=== PATIENT | male | born 1955 | race Caucasian/White ===

== ENCOUNTER → 2019-04-29 09:10 | Outpatient (BNVA) | payer MEDICARE, BC, SELFPAY | PROVIDERS: Family Provider Family Medicine; PCP Nurse Practitioner; Visit Provider Family Medicine | DX: I48.91 Unspecified atrial fibrillation (principal) | CPT/HCPCS: 85610 ==

== ENCOUNTER → 2019-05-27 11:37 | Outpatient (BNVA) | payer MEDICARE, BC, SELFPAY | PROVIDERS: Family Provider Family Medicine; PCP Nurse Practitioner; Visit Provider Family Medicine | DX: D69.9 Hemorrhagic condition, unspecified (principal) | CPT/HCPCS: 85610 ==

== ENCOUNTER 2019-07-11 20:18 | Emergency (ER) | payer MEDICARE, BC, SELFPAY ==
[2019-07-11 20:23] VITALS: BP 172/107; PULSE 75; RESP 20; TEMP 37.1; O2SAT 100; BMI 33.8
--- NOTE | 2019-07-11 20:45 | ED_ITS ---
HPI - General Adult General: Chief complaint: General Medical Stated complaint: nose bleed Time Seen by Provider: 07/11/19 20:26 History of Present Illness: HPI narrative: Patient arrives with history of nosebleed since 7:00 this evening. Patient is on Coumadin. Last INR was normal. Patient said he had this problem 70 years ago. Denies any upper respiratory infection or problems that led to this today. MD complaint: Epistaxis Onset (ago): hour(s) Associated symptoms: Deny chest pain, dyspnea, headache(s), nausea, rash or vomiting Review of Systems Const: Denies: fever, chills or body aches Eyes: Denies: change in vision or blurry vision ENMT: Reports: nose bleeds; Denies: throat pain or nasal congestion Card: Denies: chest pain or shortness of breath on exertion Resp: Denies: shortness of breath, productive cough or non-productive cough GI: Denies: abdominal pain, nausea or vomiting : Denies: difficulty urinating Musc: Denies: extremity pain Skin/Breast: Denies: rash Neuro: Denies: headache Psych: Denies: anxiety or depression Alexi/Lymph: Denies: easy bruising PFSH ED PFSH: Social History Smoking and tobacco status: never smoked Physical Exam Const: COMMON NORMALS: no apparent distress, average body habitus and oriented x3 HENMT: COMMON NORMALS: normocephalic HEAD & SCALP: normal to inspection and normocephalic FACE & SINUS: normal facial exam NOSE: epistaxis (González's note did place a nasal tampon with 10 mL of air) on the right and on the left Eye: COMMON NORMALS: conjunctivae normal GENERAL EYE: normal appearance of both eyes CONJUNCTIVA: Yes conjunctivae normal Neck/C-Spine: COMMON NORMALS: no JVD Chest: COMMONS NORMALS: inspection of chest normal Resp: COMMON NORMALS: normal respiratory effort and clear to auscultation bilaterally AUSCULTATION: clear to auscultation bilaterally Cardio: COMMON NORMALS: no JVD, regular rate and regular rhythm RATE: regular rate RHYTHM: regular rhythm GI: COMMON NORMALS: normal to inspection, nondistended, normoactive bowel sounds Extremity: COMMON NORMALS: normal to inspection and full ROM Neuro: COMMON NORMALS: oriented x3 Procedures Epistaxis Control Time Out Performed: No Nostril: left Nose Prepped With: phenylephrine Direct Inspection: unable to visualize Cautery Used: none Device Inserted: hemostatic balloon Device Size: 12 Patient Tolerated Procedure: well Complications: pain Course Vital Signs: Vital signs: Vital Signs Temperature 98.7 F 07/11/19 20:23 Pulse Rate 78 07/11/19 21:30 Respiratory Rate 18 07/11/19 21:30 Blood Pressure 188/121 07/11/19 21:30 Pulse Oximetry 98 07/11/19 21:30 MDM - General Adult MDM Narrative: Medical decision making narrative: Bleeding is stopped with treatment. Blood pressures come down. Discussed case with Dr. Mcbride. Lab Data: Labs: Lab Results 07/11/19 07/11/19 Range/Units 20:48 20:48 WBC 9.1 (4.0-10.0) 10^3/ uL RBC 5.66 H (4.1-5.3) 10^6/u L Hgb 13.5 (11.7-16.6) g/dL Hct 44.8 (42.0-52.0) % MCV 79.2 L (80-94) fL MCH 23.9 L (28.0-34.0) pg MCHC 30.1 (30.0-36.0) g/dL RDW 17.5 H (12.1-15.1) % Plt Count 189 (130-400) 10^3/c mm MPV 11.8 H (7.4-10.4) fL Neut % (Auto) 57.6 % Lymph % (Auto) 28.9 % Eagle % (Auto) 10.1 % Eos % (Auto) 2.4 % Baso % (Auto) 0.7 % Neut # (Auto) 5.2 (1.8-7.7) 10^3/u L Lymph # (Auto) 2.6 (0.8-4.8) 10^3/u L Eagle # (Auto) 0.9 (0.2-0.9) 10^3/u L Eos # (Auto) 0.2 (0.0-0.8) 10^3/u L Baso # (Auto) 0.1 (0.0-0.1) 10^3/u L Nucleated RBC % (a uto) 0 % Nucleated RBCs # 0.0 /100WBC PT 20.90 H (10.5-13.3) SECO NDS INR 1.73 H (0.8-1.2) Coding Level of Care Code ED Washing And Screening Plant Supervisor for Chg Fwd Exam Comprehensive
[2019-07-11] MEDS: HYDROcodone-acetaminophen 5-325 mg Tablet 1 TAB PO (20:57)
[2019-07-11] MEDS: LORazepam 1 mg Tablet 0.5 MG PO (20:57)
[2019-07-11 21:01] VITALS: BP 172/112; PULSE 72; RESP 18; O2SAT 99
[2019-07-11 21:03] VITALS: BP 172/112; PULSE 68; RESP 18; O2SAT 99
[2019-07-11 21:05] LABS: Basophils # 0.1 10^3/uL (0.0-0.1); Basophils % 0.7 %; Eosinophils # 0.2 10^3/uL (0.0-0.8); Eosinophils % 2.4 %; Hematocrit 44.8 % (42.0-52.0); Hemoglobin 13.5 g/dL (11.7-16.6); Lymphocytes # 2.6 10^3/uL (0.8-4.8); Lymphocytes % 28.9 %; Mean Corpuscular HGB Conc 30.1 g/dL (30.0-36.0); Mean Corpuscular Hemoglobin 23.9 pg (28.0-34.0); Mean Corpuscular Volume 79.2 fL (80-94); Mean Platelet Volume 11.8 fL (7.4-10.4); Monocytes # 0.9 10^3/uL (0.2-0.9); Monocytes % 10.1 %; Neutrophils # 5.2 10^3/uL (1.8-7.7); Neutrophils % 57.6 %; Nucleated Red Blood Cells % 0 %; Platelet Count 189 10^3/cmm (130-400); Red Blood Count 5.66 10^6/uL (4.1-5.3); Red Cell Distribution Width 17.5 % (12.1-15.1); White Blood Count 9.1 10^3/uL (4.0-10.0)
[2019-07-11 21:18] LABS: INR 1.73 (0.8-1.2)
[2019-07-11 21:30] VITALS: BP 188/121; PULSE 78; RESP 18; O2SAT 98
[2019-07-11] MEDS: cloNIDine 0.1 mg Tablet 0.2 MG PO (21:47)
[2019-07-11 22:38] VITALS: BP 176/107; PULSE 88; RESP 16; O2SAT 98
== END 2019-07-11 22:50 | disposition home or self-care (01) ==
PROVIDERS: Emergency Provider Nurse Practitioner Family; Family Provider Family Medicine; PCP Nurse Practitioner
DX: R04.0 Epistaxis (principal); Z79.01 Long term (current) use of anticoagulants
CPT/HCPCS: 12345; 30901; 85025; 85610; 99281; 99283

== ENCOUNTER 2019-07-12 08:38 | Emergency (ER) | payer MEDICARE, BC, SELFPAY ==
[2019-07-12 08:46] VITALS: BP 153/95; RESP 16; BMI 33.8
[2019-07-12 08:50] VITALS: BP 153/95; PULSE 71; RESP 16; TEMP 36.4; O2SAT 99
[2019-07-12] MEDS: oxymetazoline 0.05% Nasal Spray 15 mL 2 SPRAY NOSTRIL-B (09:00)
--- NOTE | 2019-07-12 09:16 | ED_ITS ---
HPI - Epistaxis General: Chief complaint: General Medical Stated complaint: nose bleed with rocket in Time Seen by Provider: 07/12/19 08:47 Source: patient Mode of arrival: ambulatory Limitations: no limitations History of Present Illness: HPI Narrative: Patient is a very nice 64-year-old gentleman who presents to ED today with complaints of continued nosebleed following his visit here yesterday and left nare packing. He states he has noticed bleeding coming from the right nare. Patient was seen here yesterday and had labs performed due to his warfarin use. INR at that time was 1.7. He stated he was told not to take his warfarin today. Patient reports one previous nosebleed but otherwise no history of these. No injury/trauma. MD complaint: epistaxis Location: right nostril Onset (ago): day(s) Duration: constant Context: warfarin use Associated symptoms: Deny fever(s), headache(s), syncope or vomiting Review of Systems Const: Denies: fever, chills, body aches, fatigue or malaise Eyes: Denies: change in vision, blurry vision, photophobia, eye discomfort, floaters or seeing flashes ENMT: Denies: throat pain, enlarged tonsils, painful swallowing, mouth pain, swelling of lips/tongue, oral sores/lesions, bleeding gums, ear pain, ear discharge, tinnitus, disequilibrium, nasal discharge or nasal congestion Card: Denies: chest pain, palpitations, irregular heart rhythm, edema, lightheadedness, syncope or pre-syncope Resp: Denies: shortness of breath, productive cough or chest congestion GI: Denies: abdominal pain, nausea or vomiting Musc: Denies: neck pain or back pain Skin/Breast: Denies: rash Neuro: Denies: headache, numbness in extremities, weakness in extremities or changes in sensation PFSH ED PFSH: Social History Smoking and tobacco status: never smoked Physical Exam Const: COMMON NORMALS: no apparent distress, oriented x3, no limitations and alert HENMT: COMMON NORMALS: normocephalic, head/scalp atraumatic, hearing grossly normal bilaterally, external ears normal, EAC's normal, moist oral mucous membranes and oropharynx normal HEAD & SCALP: normocephalic and atraumatic FACE & SINUS: normal facial exam and sinuses nontender NOSE: other (packing present to L nare; see below for further details) EXTERNAL EAR: Yes external ears normal EXTERNAL AUDITORY CANAL: EAC's normal MOUTH: oral and palatal mucosa normal, lip normal and tongue normal THROAT: posterior oropharynx normal, tonsils normal and uvula midline OTHER: pt had clot to R nare-this was blown out and overall R nare looks clean w/o bleeding; there is no bleeding at this time; packing was removed from L nare and patient immediately began bleeding again for approximately 30 seconds; bleeding either stopped on its own or from the administration of Afrin; no further bleeding at this time; L nare is very friable appearing although no direct visualization of bleeding site was identified; most likely this was a posterior bleed Neuro: COMMON NORMALS: oriented x3 SENSORIUM/ORIENTATION: Yes alert Course Vital Signs: Vital signs: Vital Signs Temperature 97.6 F 07/12/19 08:50 Pulse Rate 98 07/12/19 09:46 Respiratory Rate 16 07/12/19 09:46 Blood Pressure 147/95 07/12/19 09:46 Pulse Oximetry 100 07/12/19 09:46 MDM - Epistaxis MDM Narrative: Medical decision making narrative: at this time pt has intermittent scant bleeding from L nare-I feel if I were to send him home w/o intervention then he would most likely return later today with recurrent bleeding; decision was made to repack L nare; it appeared anterior packing ball oon was in placed; I placed a posterior balloon; pt was monitored for 30 mins w/o bleeding; will get him set up with ENT and if they cannot see him then his can remove the balloon or he can return here for removal; pt can continue his warfarin as normal tomorrow Discharge Plan Discharge Patient Disposition: Home, Self-Care Clinical Impression: Epistaxis Condition: Stable Prescriptions: No Action hydrocodone-acetaminophen 5-325 mg tablet 1 tab PO Q6H PRN (Reason: pain) Qty: 7 RF: 0 lorazepam [Ativan] 0.5 mg tablet 0.25 mg PO Q8H PRN (Reason: sedation) Qty: 7 RF: 0 atorvastatin 20 mg Tablet 20 mg PO DAILY RF: 0 metoprolol tartrate 100 mg Tablet 100 mg PO BID RF: 0 Flomax 0.4 mg Capsule 0.4 mg PO DAILY RF: 0 warfarin 5 mg Tablet See Rx Instructions .ROUTE .COMPLEX RF: 0 sertraline 25 mg Tablet 25 mg PO DAILY RF: 0 omeprazole 20 mg Capsule,Delayed Release(Dr/Ec) 20 mg PO DAILY RF: 0 aspirin 81 mg Tablet,Chewable 81 mg PO DAILY RF: 0 Lasix 20 mg Tablet 20 mg PO BID RF: 0 Discharge Orders: Discharge Order (Routine); Ordered 07/12/19 Ordered By: Sandra Cruz Referrals: Verónica Davis MD [Family Provider] - Kriss Paz FNP-C [Primary Care Provider] - Discharge Diet: Usual diet Discharge Activity: Resume usual activity Patient Instructions: Epistaxis (ED), Epistaxis - Adult Activity Restrictions/Additional Instructions: As discussed we will try to get you set up with ENT early next week however if you are not able to obtain an appointment by Sunday/Sunday you need to have your remove the nasal balloon if she feels comfortable or return to the emergency department where we can remove it. Continue the antibiotics that you stated you are taking. Return to the emergency department at anytime for worsening or uncontrollable bleeding. Discharge Date/Time: 07/12/19 09:46 Coding Level of Care Code ED Welder Apprentice Arc for El Fwd Exam Expanded Problem Focused
[2019-07-12 09:46] VITALS: BP 147/95; PULSE 98; RESP 16; O2SAT 100
--- NOTE | 2019-07-15 11:07 | DCPLANNER ---
security sales manager had message to schedule a follow up appointment for patient with ENT. Dr. Verduzco's office is closed at this time, piano case maker called patient to ask patient if he would like for piano case maker to schedule a follow up appointment for patient with Dr. Salomon. security sales manager spoke with patients , stated that patient would prefer not see Dr. Salomon. security sales manager explained that Dr. Verduzco was out of the office this week. Patients stated that patient was seen by his primary care provider, and that the primary care will take care of referral to ENT for patient.
== END 2019-07-12 09:46 | disposition home or self-care (01) ==
LOC: ER 09:37
PROVIDERS: Emergency Provider Physician Assistant; Family Provider Family Medicine; PCP Nurse Practitioner
DX: R04.0 Epistaxis (principal); Z79.82 Long term (current) use of aspirin; Z79.01 Long term (current) use of anticoagulants
CPT/HCPCS: 12345; 30905; 99282

== ENCOUNTER 2019-07-14 11:58 | Emergency (ER) | payer MEDICARE, BC, SELFPAY ==
[2019-07-14 12:09] VITALS: BP 141/103; PULSE 80; RESP 16; TEMP 36.6; O2SAT 98; BMI 33.7
--- NOTE | 2019-07-14 12:48 | ED_ITS ---
HPI - Epistaxis General: Chief complaint: Epistaxis Stated complaint: nose bleed Time Seen by Provider: 07/14/19 12:12 Source: patient Mode of arrival: ambulatory Limitations: no limitations History of Present Illness: HPI Narrative: Patient is a 64-year-old male who presents to ED today yet again for epistaxis evaluation. Patient was seen by myself 2 days ago and had a left nare posterior pack placed. Patient states packing was doing well. He went to his PCP today who decided to remove the packing and after removal stated the nare began bleeding again so this was sent to the emergency department. Upon arrival patient has very scant amount of watery blood-tinged discharge from the nare. He is not noticing any blood taste in his mouth. MD complaint: epistaxis Location: left nostril Duration: now resolved Context: history of previous and warfarin use Associated symptoms: Reports no associated symptoms; Deny fever(s) or headache(s) Treatment prior to arrival: nasal clamp Review of Systems Const: Denies: fever, chills, body aches, fatigue or malaise Eyes: Denies: change in vision, blurry vision, photophobia, floaters or seeing flashes ENMT: Denies: painful swallowing, hoarseness, mouth pain, bleeding gums or dental pain Card: Denies: lightheadedness Neuro: Denies: headache or dizziness PFS ED PFSH: Social History Smoking and tobacco status: never smoked Physical Exam Const: COMMON NORMALS: no apparent distress, oriented x3, no limitations and alert HENMT: COMMON NORMALS: normocephalic, head/scalp atraumatic, moist oral mucous membranes and oropharynx normal HEAD & SCALP: normocephalic and atraumatic THROAT: posterior oropharynx normal, tonsils normal and uvula midline OTHER: L nare overall improved appearance of tissue; again scant blood tinged clear drainage noted (not even enough to soak a tissue throughout the 2 hours he was in the ED) Neck/C-Spine: COMMON NORMALS: full ROM, no lymphadenopathy and no meningeal signs Neuro: COMMON NORMALS: oriented x3 SENSORIUM/ORIENTATION: Yes alert MENINGEAL SIGNS: Yes no meningeal signs Course Vital Signs: Vital signs: Vital Signs Temperature 97.8 F 07/14/19 12:09 Pulse Rate 81 07/14/19 13:29 Respiratory Rate 16 07/14/19 13:29 Blood Pressure 125/72 07/14/19 13:29 Pulse Oximetry 100 07/14/19 13:29 MDM - Epistaxis MDM Narrative: Medical decision making narrative: Patient was watched in the ED for approximately 2 hours and never had anything more than a scant amount of blood-tinged clear drainage. Drainage was not enough to even soak a tissue throughout his stay. Spoke to him about repacking his nare however patient does not want this if at all possible. Again we will try to get him set up with ENT. In the meantime we will try to treat with a nasal clamp and Afrin. Patient was instructed on return to ED precautions including worsening bleeding not alleviated with the above methods. Discharge Plan Discharge Patient Disposition: Home, Self-Care Clinical Impression: Epistaxis Condition: Stable Prescriptions: No Action hydrocodone-acetaminophen 5-325 mg tablet 1 tab PO Q6H PRN (Reason: pain) Qty: 7 RF: 0 lorazepam [Ativan] 0.5 mg tablet 0.25 mg PO Q8H PRN (Reason: sedation) Qty: 7 RF: 0 Vitamin D3 1 tab PO DAILY RF: 0 atorvastatin 20 mg Tablet 20 mg PO DAILY RF: 0 metoprolol tartrate 100 mg Tablet 100 mg PO BID RF: 0 tamsulosin [Flomax] 0.4 mg Capsule 0.4 mg PO DAILY RF: 0 warfarin 5 mg Tablet See Rx Instructions .ROUTE .COMPLEX RF: 0 sertraline 25 mg Tablet 25 mg PO DAILY RF: 0 omeprazole 20 mg Capsule,Delayed Release(Dr/Ec) 20 mg PO DAILY RF: 0 aspirin 81 mg Tablet,Chewable 81 mg PO DAILY RF: 0 furosemide [Lasix] 20 mg Tablet 20 mg PO BID RF: 0 Discharge Orders: Discharge Order (Routine); Ordered 07/14/19 Ordered By: Sandra Cruz Referrals: Verónica Davis MD [Family Provider] - Kriss Paz FNP-C [Primary Care Provider] - Patient Instructions: Epistaxis (ED) Activity Restrictions/Additional Instructions: As discussed I have decided not to repack your nare at this time as bleeding here has been scant. I want you to continue the Afrin as needed every 8 hours as well as applying the nasal clamp as often as necessary for bleeding. If bleeding increases from what it is currently and is not controlled with compression/Afrin please return to the ED for further evaluation. Again we are trying to get case management to set you up with ENT. Discharge Date/Time: 07/14/19 14:01 Coding Level of Care Code ED Program Management Intern for Sabihag Fwd Exam Expanded Problem Focused
[2019-07-14] MEDS: oxymetazoline 0.05% Nasal Spray 15 mL 2 SPRAY NOSTRIL-B (13:28)
[2019-07-14 13:29] VITALS: BP 125/72; PULSE 81; RESP 16; O2SAT 100
--- NOTE | 2019-07-16 12:23 | DCPLANNER ---
manager math had message to schedule a follow up appointment for patient with ENT. manager math spoke with patients , and was told that patient did not want to see Dr. Salomon. Patients stated that patient has seen his primary care, and that patients primary care is referring patient to [place].
== END 2019-07-14 14:01 | disposition home or self-care (01) ==
PROVIDERS: Emergency Provider Physician Assistant; Family Provider Family Medicine; PCP Nurse Practitioner
DX: R04.0 Epistaxis (principal); Z79.82 Long term (current) use of aspirin
CPT/HCPCS: 12345; 99281; 99282

== ENCOUNTER → 2019-07-30 08:50 | Outpatient (BNVA) | payer MEDICARE, BC, SELFPAY | PROVIDERS: Family Provider Family Medicine; PCP Family Medicine; Visit Provider Nurse Practitioner Family | DX: I10 Essential (primary) hypertension (principal); R06.00 Dyspnea, unspecified; Z79.01 Long term (current) use of anticoagulants | CPT/HCPCS: 80048; 83880; 85610 ==

== ENCOUNTER 2019-07-31 21:28 | Emergency (ER) | payer MEDICARE, BC, SELFPAY ==
[2019-07-31 21:33] VITALS: BP 185/102; PULSE 93; RESP 14; TEMP 36.5; O2SAT 100; BMI 33.7
[2019-07-31] MEDS: oxymetazoline 0.05% Nasal Spray 15 mL 4 SPRAY NOSTRIL-B (22:00)
--- NOTE | 2019-07-31 22:46 | ED_ITS ---
HPI - Epistaxis General: Chief complaint: Epistaxis Stated complaint: NOSEBLEED Time Seen by Provider: 07/31/19 22:14 Source: patient Mode of arrival: ambulatory Limitations: no limitations History of Present Illness: HPI Narrative: Patient is a 64-year-old male who presents to ED today with complaints of a nosebleed. Patient was seen here approximately 17 days ago by myself for the nosebleed. He had had 2 previous visits before that for same complaint. Patient states after the last visit with myself he was doing okay until this morning when nare began bleeding again. He has had evaluation from ENT and told he has a polyp that needs surgically removed. He states ENT should be contacting him tomorrow to set up a surgery time for next week. MD complaint: epistaxis Location: left nostril Onset (ago): hour(s) Duration: constant Context: history of previous and warfarin use Associated symptoms: Reports no associated symptoms; Deny fever(s), headache(s), sinus pain or vomiting Treatment prior to arrival: nose pinching, head tilted back and nasal clamp Review of Systems Const: Denies: fever or chills Eyes: Denies: change in vision, blurry vision, photophobia, floaters or seeing flashes ENMT: Reports: nose bleeds; Denies: throat pain, enlarged tonsils, painful swallowing, dental pain, tinnitus or facial/sinus pain Card: Denies: chest pain Resp: Denies: shortness of breath GI: Denies: nausea or vomiting Neuro: Denies: headache PFSH ED PFSH: Social History Smoking and tobacco status: never smoked Physical Exam Const: COMMON NORMALS: no apparent distress, average body habitus, oriented x3, no limitations, healthy appearing, alert and well nourished HENMT: COMMON NORMALS: normocephalic, head/scalp atraumatic, hearing grossly normal bilaterally, external ears normal, EAC's normal, TM's normal bilaterally and oropharynx normal HEAD & SCALP: normocephalic and atraumatic FACE & SINUS: normal facial exam and sinuses nontender NOSE: epistaxis on the left active bleeding and source not visualized EXTERNAL EAR: Yes external ears normal EXTERNAL AUDITORY CANAL: EAC's normal TYMPANIC MEMBRANE: TM's normal bilaterally Eye: COMMON NORMALS: PERRL, EOMs intact bilaterally and conjunctivae normal CONJUNCTIVA: Yes conjunctivae normal PUPIL: Yes PERRL Resp: COMMON NORMALS: normal respiratory effort Cardio: COMMON NORMALS: regular rate and regular rhythm RATE: regular rate RHYTHM: regular rhythm Neuro: COMMON NORMALS: oriented x3 SENSORIUM/ORIENTATION: Yes alert Procedures Epistaxis Control Time Out Performed: No Nostril: left Nose Prepped With: oxymetazoline Direct Inspection: unable to visualize Cautery Used: none Device Inserted: hemostatic balloon (posterior balloon) Patient Tolerated Procedure: well Course Reevaluation(s): Reevaluation #1: pts nosebleed doing well with his balloon packing; RN/lab still has not collected pts labs so awaiting those Vital Signs: Vital signs: Vital Signs Temperature 97.7 F 07/31/19 21:33 Pulse Rate 93 07/31/19 21:33 Respiratory Rate 20 H 07/31/19 23:18 Blood Pressure 156/102 07/31/19 23:18 Pulse Oximetry 100 07/31/19 21:33 MDM - Epistaxis MDM Narrative: Medical decision making narrative: pts bleeding has stopped with balloon packing; CBC/INR labs are okay (INR 2.08); recommend he contact ENT tomorrow if he has not heard from them; recommend he ask them if they want him to leave packing in until his surgery early next week; if they want it removed earlier then he can return here over the weekend Lab Data: Labs: Lab Results 07/31/19 07/31/19 Range/Units 23:13 23:13 WBC 10.4 H (4.0-10.0) 10^3/ uL RBC 4.42 (4.1-5.3) 10^6/u L Hgb 10.2 L (11.7-16.6) g/dL Hct 34.3 L (42.0-52.0) % MCV 77.6 L (80-94) fL MCH 23.1 L (28.0-34.0) pg MCHC 29.7 L (30.0-36.0) g/dL RDW 17.1 H (12.1-15.1) % Plt Count 273 (130-400) 10^3/c mm MPV 10.8 H (7.4-10.4) fL Neut % (Auto) 65.8 % Lymph % (Auto) 21.7 % Schleicher % (Auto) 10.2 % Eos % (Auto) 1.4 % Baso % (Auto) 0.6 % Neut # (Auto) 6.8 (1.8-7.7) 10^3/u L Lymph # (Auto) 2.3 (0.8-4.8) 10^3/u L Schleicher # (Auto) 1.1 H (0.2-0.9) 10^3/u L Eos # (Auto) 0.2 (0.0-0.8) 10^3/u L Baso # (Auto) 0.1 (0.0-0.1) 10^3/u L Nucleated RBC % (a uto) 0 % Nucleated RBCs # 0.0 /100WBC PT 24.20 H (10.5-13.3) SECO NDS INR 2.08 H (0.8-1.2) Discharge Plan Discharge Patient Disposition: Home, Self-Care Clinical Impression: Epistaxis Condition: Stable Prescriptions: No Action hydrocodone-acetaminophen 5-325 mg tablet 1 tab PO Q6H PRN (Reason: pain) Qty: 7 RF: 0 lorazepam [Ativan] 0.5 mg tablet 0.25 mg PO Q8H PRN (Reason: sedation) Qty: 7 RF: 0 Vitamin D3 1 tab PO DAILY RF: 0 atorvastatin 20 mg Tablet 20 mg PO DAILY RF: 0 metoprolol tartrate 100 mg Tablet 100 mg PO BID RF: 0 tamsulosin [Flomax] 0.4 mg Capsule 0.4 mg PO DAILY RF: 0 warfarin 5 mg Tablet See Rx Instructions .ROUTE .COMPLEX RF: 0 sertraline 25 mg Tablet 25 mg PO DAILY RF: 0 omeprazole 20 mg Capsule,Delayed Release(Dr/Ec) 20 mg PO DAILY RF: 0 aspirin 81 mg Tablet,Chewable 81 mg PO DAILY RF: 0 furosemide [Lasix] 20 mg Tablet 20 mg PO BID RF: 0 Discharge Orders: Discharge Order (Routine); Ordered 07/31/19 Ordered By: Sandra Cruz Referrals: Verónica Davis MD [Primary Care Provider] - Discharge Diet: Usual diet Discharge Activity: Resume usual activity Patient Instructions: Epistaxis (ED) Activity Restrictions/Additional Instructions: As discussed if you do not hear from ENT tomorrow please contact them so you know the plan for your upcoming surgery. Ask them if they would like you to keep your packing in place until the surgery. If they would like it removed earlier than you may return to the emergency department or your primary care provider for this. Coding Level of Care Code ED General Farmer for El Fwd Exam Detailed
[2019-07-31 23:18] VITALS: BP 156/102; RESP 20
[2019-07-31 23:25] LABS: Basophils # 0.1 10^3/uL (0.0-0.1); Basophils % 0.6 %; Eosinophils # 0.2 10^3/uL (0.0-0.8); Eosinophils % 1.4 %; Hematocrit 34.3 % (42.0-52.0); Hemoglobin 10.2 g/dL (11.7-16.6); Lymphocytes # 2.3 10^3/uL (0.8-4.8); Lymphocytes % 21.7 %; Mean Corpuscular HGB Conc 29.7 g/dL (30.0-36.0); Mean Corpuscular Hemoglobin 23.1 pg (28.0-34.0); Mean Corpuscular Volume 77.6 fL (80-94); Mean Platelet Volume 10.8 fL (7.4-10.4); Monocytes # 1.1 10^3/uL (0.2-0.9); Monocytes % 10.2 %; Neutrophils # 6.8 10^3/uL (1.8-7.7); Neutrophils % 65.8 %; Nucleated Red Blood Cells % 0 %; Platelet Count 273 10^3/cmm (130-400); Red Blood Count 4.42 10^6/uL (4.1-5.3); Red Cell Distribution Width 17.1 % (12.1-15.1); White Blood Count 10.4 10^3/uL (4.0-10.0)
[2019-07-31 23:30] LABS: INR 2.08 (0.8-1.2)
[2019-08-01 00:37] VITALS: BP 158/97; PULSE 82; RESP 20; O2SAT 97
== END 2019-08-01 00:40 | disposition home or self-care (01) ==
PROVIDERS: Emergency Medicine; Emergency Provider Physician Assistant; Family Provider Family Medicine; PCP Family Medicine
DX: R04.0 Epistaxis (principal); Z79.01 Long term (current) use of anticoagulants; Z79.82 Long term (current) use of aspirin
CPT/HCPCS: 12345; 30905; 85025; 85610; 99281; 99282

== ENCOUNTER → 2019-08-20 09:01 | Outpatient (BNVA) | payer MEDICARE, BC, SELFPAY | PROVIDERS: Family Provider Family Medicine; PCP Family Medicine; Visit Provider Family Medicine | DX: Z79.01 Long term (current) use of anticoagulants (principal) | CPT/HCPCS: 85610 ==

== ENCOUNTER → 2019-09-11 09:24 | Outpatient (BNVA) | payer MEDICARE, BC, SELFPAY | PROVIDERS: Family Provider Family Medicine; PCP Family Medicine; Visit Provider Family Medicine | DX: Z79.01 Long term (current) use of anticoagulants (principal) | CPT/HCPCS: 85610 ==

== ENCOUNTER → 2019-09-25 09:25 | Outpatient (BNVA) | payer MEDICARE, BC, SELFPAY | PROVIDERS: Family Provider Family Medicine; PCP Family Medicine; Visit Provider Family Medicine | DX: D69.9 Hemorrhagic condition, unspecified (principal); Z79.01 Long term (current) use of anticoagulants | CPT/HCPCS: 85610 ==

== ENCOUNTER 2020-02-17 09:37 | Outpatient (CLI) | payer MEDICARE, BC, SELFPAY ==
--- NOTE | 2020-02-17 09:47 | XRR_ITS ---
PROCEDURE INFORMATION: Exam: XR Left Elbow Exam date and time: 02/17/2020 9:51 AM Age: 64 years old Clinical indication: Pain and injury or trauma and condition or disease; Fall; Bursitis; Blunt trauma (contusions or hematomas); Injury date: 1 week ago; Injury details: PT fell and hit elbow on bathroom vanity; Patient HX: Left elbow pain, medial side ulnar; Additional info: Olecranon bursitis TECHNIQUE: Imaging protocol: XR Left elbow. Views: 1 or 2 views. COMPARISON: No relevant prior studies available. FINDINGS: Bones/joints: No fracture dislocation or other acute bone or joint abnormalities are seen. Chronic degenerative changes are present with osteophyte formation and sclerosis. Soft tissues: There is soft tissue swelling dorsally. XR/XR elbow LT 2V [id number] IMPRESSION: Degenerative changes. No acute abnormality is seen.
== END 2020-02-17 09:38 | disposition home or self-care (01) ==
LOC: RADWPI 09:45
PROVIDERS: PCP Family Medicine; Visit Provider Family Medicine
DX: M70.22 Olecranon bursitis, left elbow (principal); M79.89 Other specified soft tissue disorders
CPT/HCPCS: 73070

== ENCOUNTER 2020-04-19 09:22 | Outpatient (CLI) | payer MEDICARE, BC, SELFPAY ==
[2020-04-19 10:26] LABS: Basophils # 0.1 10^3/uL (0.0-0.1); Basophils % 0.6 %; Eosinophils # 0.1 10^3/uL (0.0-0.8); Eosinophils % 1.1 %; Hematocrit 45.4 % (42.0-52.0); Hemoglobin 12.3 g/dL (11.7-16.6); Lymphocytes # 1.5 10^3/uL (0.8-4.8); Lymphocytes % 12.8 %; Mean Corpuscular HGB Conc 27.1 g/dL (30.0-36.0); Mean Platelet Volume 10.3 fL (7.4-10.4); Monocytes % 8.8 %; Neutrophils # 9.03 10^3/uL (1.8-7.7); Neutrophils % 76.3 %; Nucleated Red Blood Cells % 0 %; Platelet Count 321 10^3/cmm (130-400); Red Blood Count 6.49 10^6/uL (4.1-5.3); Red Cell Distribution Width 27.2 % (12.1-15.1); White Blood Count 11.8 10^3/uL (4.0-10.0)
[2020-04-19 13:24] LABS: Ferritin 37 ng/mL (30-400); Iron 27 ug/dL (59-158); Percent Saturation 8.2 % (20-50); Total Iron Binding Capacity 328 mcg/dl; Unsaturated Iron Binding 301 ug/dL (112-347)
[2020-04-19 13:41] LABS: Vitamin B12 533 pg/mL (232-1245)
--- NOTE | 2020-04-19 15:16 | ONC CON_ITS ---
Dr. Menendez New Patient Note Patient: Oscar Trejo Unit #: [id number]: 1955 Dicatated By: Raciel Menendez M.D.Date of Visit: Apr 19, 2020 Onc MED New Patient/Consult Referring Physician: Dr. Verónica Davis M.D. History of Present Illness: Mr. Oscar Trejo, is a 65-year-old gentleman with a history of iron deficiency anemia, initially it was thought due to recurrent nosebleed requiring multiple visits to [facility] eventually referred to ENT in August 2019 at that time he was diagnosed with chronic rhinosinusitis as well as intermittent epistaxis, as per patient he underwent some kind of sinus surgery since then no more nosebleed. Patient has history of atrial fibrillation for which he is on anticoagulation with Coumadin. Patient was started on oral iron supplements, has been tolerating well and his lab work-up done on August 12, 2019 showed white blood count 7.8 hemoglobin 9.6 crit 32.3 platelets 277,000 MCV 75.5 as per patient he was started on oral iron, is a hemoglobin continued to improve and lab work-up done on April 08, 2020 showed white blood count 9.2 hemoglobin 11.2 hematocrit 42.1 platelets 287,000 MCV 68.3 and iron studies shows ferritin 18.8 iron saturation 7% iron 26 TIBC 274, B12 389 As per patient he had EGD done many years ago and at that time it was normal and colonoscopy was done about 5 years ago and it was unremarkable too. Patient has history of sleep apnea, using CPAP history of CVA with recovery, on aspirin, Hypertension, congestive heart failure Denies any specific complaints, no night sweats, no weight loss, no recurrent fever, no peripheral lymphadenopathy, no abdominal fullness, no jaundice, no dysuria or hematuria, no melena or hematochezia, no hemoptysis or hematemesis, tolerating oral iron well otherwise Past Medical History: Mr. Trejo's medical history consists of atrial fibrillation, chronic kidney disease, congestive heart failure, depression, gastroesophageal reflux disease, hyperlipidemia, hypertension, and stroke. Past Surgical History: Mr. Trejo's surgical/procedural history consists of hand repair, knee surgery, tonsillectomy, chest tube for pleural effusion in 2019, and cholecystectomy in 2014. Medications: Adult Aspirin EC Low Strength 1 Tablet (of 81 mg) Tablet, enteric coated Oral daily, Atorvastatin Calcium 1 Tablet (of 20 mg) Oral daily, Coumadin (5 mg) Tablet Oral Take as Directed, EQL Iron Supplement Therapy 1 Tablet (of 325 mg) Oral daily, Furosemide 1 Tablet (of 20 mg) Oral at bedtime, Furosemide 1 Tablet (of 40 mg) Oral daily, Metoprolol Succinate 1 Tablet (of 100 mg) Capsule ER 24 Hr Sprinkle Oral daily, Omeprazole 1 Tablet (of 20 mg) Capsule Delayed Release Oral daily, Sertraline HCl 1 Tablet (of 25 mg) Oral daily, Tamsulosin HCl 1 Tablet (of 0.4 mg) Capsule Oral daily Allergies: Latex, Lisinopril, Penicillins, and traMADol HCl. Social History: Mr. Trejo is . Mr. Trejo has never smoked. He has no history of drinking. Family History: There is no documented family history. Review Of Symptoms: Constitutional - Appetite is good and weight is stable. No fever, night sweats, or hot flashes. Energy level is fair, ENMT - No sinus congestion/drainage. No mouth sores. No sore throat or difficulty swallowing, Hematologic/Lymphatic - Positive for easy bruising/bleeding, Respiratory - Positive for shortness of breath. No cough. No pleuritic pain or hemoptysis, Cardiovascular - No angina pain. No palpitations, Gastrointestinal - No nausea or vomiting. No heartburn or acid reflux. No diarrhea or constipation. No blood in the stool or black stools, Genitourinary (M) - No dysuria or hematuria. No urinary frequency. No urgency or incontinence, Musculoskeletal - No joint or bone pain, Neurologic - No headache or dizziness. No numbness or tingling. No other focal neurologic symptoms, Psychiatric - No anxiety or depression. No insomnia. Vital Signs: Most recent vitals are not available for this patient. Performance Status: 1 - No physically strenuous activity, but ambulatory and able to carry out light or sedentary work (e.g. office work, light house work). (ECOG) Physical Examination: ENMT - No mouth sores, no thrush, no jaundice, Respiratory - Lungs are clear to auscultation, Cardiovascular - Regular rate and rhythm of heart, Abdomen - Soft, bowel sounds present, Extremities - No visible edema, no peripheral lymphadenopathy. Lab/Imaging: Most recent lab results are not available for this patient. Impression: Microcytic hypochromic anemia most likely to iron deficiency probably due to chronic blood loss due to recurrent epistaxis while patient on anticoagulation for A. fib and aspirin for history of CVA other possibility could be chronic blood loss from GI tract. Or malabsorption, less likely Atrial fibrillation, on Coumadin History of CVA, on aspirin CHF, hypertension Sleep apnea, on CPAP Plan: Discussed with patient regarding his labs white blood count 11.8 hemoglobin 12.3 g hematocrit 45.4 platelets 321,000 MCV 70.0, iron studies pending Clinically, patient is doing well, tolerating oral iron supplement for iron deficiency anemia well. His follow-up CBC done today shows further improvement in his hemoglobin eg 12.3 g compared to 11.2 g on April 08, 2019. And he is tolerating oral iron well, in that case we will continue with oral iron supplements for another month and then return to clinic in 1 month with CBC and iron studies We will check his B12 level and iron studies today as recently done labs shows his B12 was on the low side of normal range, if it persist, will consider B12 supplements too As per patient, no more episode of nosebleed for the last many months, so etiology of his iron deficient anemia could be chronic GI blood loss, would recommend colonoscopy/EGD, as per patient, Dr. Davis is considering repeating colonoscopy and EGD for iron deficiency anemia, will follow with results. If EGD and colonoscopy shows no evidence of gross bleeding or malignancy and follow-up lab shows recurrent iron deficiency anemia then we will consider capsule endoscopy to rule out small bowel AVMs. While patient is on anticoagulation for chronic A. fib and aspirin for history of CVA, he is a high risk for bleeding. Considering good response to oral iron as CBC done today shows normalization of iron deficiency anemia while on oral iron, iron malabsorption is less likely. Mild leukocytosis, etiology unclear, no signs symptom suggestive of infection, will monitor Return to clinic in 1 month with CBC and iron studies , Signed By: Raciel Menendez M.D. <<Signature on File>>
== END 2020-04-19 09:23 | disposition home or self-care (01) ==
LOC: ONCMED 09:27
PROVIDERS: PCP Family Medicine; Visit Provider Internal Medicine Hematology & Oncology
DX: D50.9 Iron deficiency anemia, unspecified (principal); R04.0 Epistaxis; I48.91 Unspecified atrial fibrillation; I11.0 Hypertensive heart disease with heart failure; I50.9 Heart failure, unspecified; G47.30 Sleep apnea, unspecified; E53.8 Deficiency of other specified B group vitamins; Z79.01 Long term (current) use of anticoagulants; Z86.73 Personal history of transient ischemic attack (TIA), and cerebral infarction without residual deficits; Z79.82 Long term (current) use of aspirin
CPT/HCPCS: 36415; 82607; 82728; 83540; 83550; 85025; 99204

== ENCOUNTER → 2020-05-06 10:37 | Outpatient (BNVA) | payer MEDICARE, BC, SELFPAY | PROVIDERS: PCP Family Medicine; Visit Provider Surgery | DX: Z01.812 Encounter for preprocedural laboratory examination (principal) | CPT/HCPCS: 87635 ==

== ENCOUNTER → 2020-05-20 12:18 | Outpatient (BNVA) | payer MEDICARE, BC, SELFPAY | PROVIDERS: PCP Family Medicine; Visit Provider Surgery | DX: Z01.812 Encounter for preprocedural laboratory examination (principal) | CPT/HCPCS: 87635 ==

== ENCOUNTER 2020-05-25 06:57 | Day surgery (SDC) | payer MEDICARE, BC, SELFPAY ==
[2020-05-21 12:56] VITALS: BMI 34.4
[2020-05-25 07:26] VITALS: BP 120/63; PULSE 70; RESP 18; TEMP 36.4; O2SAT 96
[2020-05-25] MEDS: sodium chloride 0.9% 1,000 ML 30 ML IV (07:42)
--- NOTE | 2020-05-25 07:42 | PC.NURSE ---
Notified Dr Sharma that pt voiced prep wasn't adequate. Dr Sharma ordered tap water enema. Will update Dr Sharma with results.
--- NOTE | 2020-05-25 08:09 | PC.NURSE ---
Medium results from tap water enema. Brown stool. Unable to see bottom of the toilet. Will repeat tap water enema. updated in waiting room.
--- NOTE | 2020-05-25 08:51 | W.PM.OPSUD ---
Surgery/Procedure H&P Update DATE OF PROCEDURE: May 25, 2020 DATE H&P PERFORMED: 04/26/20 H&P UPDATE INFORMATION: I have reviewed H&P completed within last 30 days, I have examined patient prior to procedure and No changes to prior documentation PREOP DIAGNOSIS: panendoscopy PLANNED PROCEDURE: Operation Date: 05/25/20 08:30 Proposed Procedures p EGD [id number] D64.9 Z86.010(Not Applicable) - Alfredo Sharma MD s Colonoscopy(Not Applicable) - Alfredo Sharma MD
[2020-05-25 09:22] VITALS: BP 107/68; PULSE 81; RESP 16; TEMP 36.2; O2SAT 92
[2020-05-25 09:42] VITALS: BP 110/75; PULSE 70; RESP 16; O2SAT 97
--- NOTE | 2020-05-25 12:08 | ANE.PACU2 ---
Inpatient post-anesthesia follow up: Airway intact: Yes Vital signs: Temperature 97.2 F Pulse Rate 70 Respiratory Rate 16 Blood Pressure 110/75 Pulse Oximetry 97 Oxygen Delivery Me thod Room Air Oxygen Flow Rate Fraction of Inspir ed Oxygen Hydration adequate: Yes Nausea and vomiting: No Pain level: 1 Mental status: Baseline
== END 2020-05-25 10:02 | disposition home or self-care (01) ==
PROVIDERS: PCP Family Medicine; Visit Provider Surgery
PROC: 0DJ08ZZ Inspection of Upper Intestinal Tract, Via Natural or Artificial Opening Endoscopic (ICD-10-PCS; CPT 43235; principal; 2020-05-25 08:30)
PROC: 0DJD8ZZ Inspection of Lower Intestinal Tract, Via Natural or Artificial Opening Endoscopic (ICD-10-PCS; CPT 45378; 2020-05-25 08:30)
DX: D64.9 Anemia, unspecified (principal); D12.0 Benign neoplasm of cecum; D12.4 Benign neoplasm of descending colon; K64.8 Other hemorrhoids; Z86.010 Personal history of colon polyps; Z79.82 Long term (current) use of aspirin; Z79.01 Long term (current) use of anticoagulants; N40.0 Benign prostatic hyperplasia without lower urinary tract symptoms; E78.5 Hyperlipidemia, unspecified; I10 Essential (primary) hypertension; Z86.73 Personal history of transient ischemic attack (TIA), and cerebral infarction without residual deficits
CPT/HCPCS: 43235; 45380; 88305; J2704; J3490; J7030

== ENCOUNTER 2020-06-03 09:52 | Outpatient (CLI) | payer MEDICARE, BC, SELFPAY ==
[2020-06-03 10:56] LABS: Basophils # 0.1 10^3/uL (0.0-0.1); Basophils % 0.6 %; Eosinophils # 0.2 10^3/uL (0.0-0.8); Eosinophils % 1.8 %; Hemoglobin 13.5 g/dL (11.7-16.6); Lymphocytes # 2.1 10^3/uL (0.8-4.8); Lymphocytes % 19.2 %; Mean Corpuscular HGB Conc 28.7 g/dL (30.0-36.0); Mean Corpuscular Volume 73.1 fL (80-94); Monocytes # 1.1 10^3/uL (0.2-0.9); Monocytes % 10.2 %; Neutrophils # 7.52 10^3/uL (1.8-7.7); Neutrophils % 67.9 %; Nucleated Red Blood Cells % 0 %; Platelet Count 254 10^3/cmm (130-400); Red Blood Count 6.43 10^6/uL (4.1-5.3); Red Cell Distribution Width 23.4 % (12.1-15.1); White Blood Count 11.1 10^3/uL (4.0-10.0)
[2020-06-03 11:24] LABS: Slide Review Slide Review Perform
[2020-06-03 11:28] LABS: Ferritin 47 ng/mL (30-400); Iron 32 ug/dL (59-158); Percent Saturation 9.8 % (20-50); Total Iron Binding Capacity 325 mcg/dl; Unsaturated Iron Binding 293 ug/dL (112-347)
--- NOTE | 2020-06-14 09:36 | ONC FU_ITS ---
[facility] Patient Note Patient: Oscar Trejo Unit #: [id number]: 1955 Dictated By: Anabel HurtadoDate of Visit: Jun 03, 2020 Onc MED Follow-Up/Prog Note Chief Complaint: Iron deficiency anemia History of Present Illness: Mr. Trejo is a 65-year-old gentleman with a history of iron deficiency anemia. Initially it was thought the anemia due to recurrent nosebleeds requiring multiple visits to [facility]. He was eventually referred to ENT in August 2019 and at that time he was diagnosed with chronic rhinosinusitis as well as intermittent epistaxis. Mr Trejo reports he underwent some kind of sinus surgery since then he has not had recurrent nosebleeds. Mr Trejo has history of atrial fibrillation for which he is on anticoagulation with Coumadin. His lab work-up from August 12, 2019 showed white blood count 7.8 hemoglobin 9.6 crit 32.3 platelets 277,000 MCV 75.5, Mr Trejo reports he was started on oral iron. His hemoglobin continued to improve and lab work-up done on April 08, 2020 showed white blood count 9.2 hemoglobin 11.2 hematocrit 42.1 platelets 287,000 MCV 68.3 and iron studies shows ferritin 18.8 iron saturation 7% iron 26 TIBC 274, B12- 389. As per patient he had EGD done many years ago and at that time it was normal and colonoscopy was done about 5 years ago and it was unremarkable too. Patient has history of sleep apnea, using CPAP history of CVA with recovery, on aspirin, Hypertension, congestive heart failure and the afib. Mr. Trejo is here today for follow-up. He states overall he continues to do well. He has no new concerns today. He states his energy is fair. His appetite is good. He denies any fever or chills. He has had no known Covid symptoms or exposure. He has had no pending test. He denies any shortness of breath orthopnea. He denies any chest pain. His bowels and bladder function are normal for him. His ECOG is 0. Past Medical History: Atrial fibrillation Chronic kidney disease Congestive heart failure Depression Gastroesophageal reflux disease Hyperlipidemia Hypertension Stroke Past Surgical History: Hand repair Knee surgery Tonsillectomy Covid 19 vaccine 2nd in 2020 Chest tube for pleural effusion in 2019 Cholecystectomy in 2013 Allergies: Latex, Lisinopril, Penicillins, and traMADol HCl. Medications: Adult Aspirin EC Low Strength 1 Tablet (of 81 mg) Tablet, enteric coated Oral daily Atorvastatin Calcium 1 Tablet (of 20 mg) Oral daily Coumadin (5 mg) Tablet Oral Take as Directed EQL Iron Supplement Therapy 1 Tablet (of 325 mg) Oral daily Furosemide 1 Tablet (of 20 mg) Oral at bedtime Furosemide 1 Tablet (of 40 mg) Oral daily Metoprolol Succinate 1 Tablet (of 100 mg) Capsule ER 24 Hr Sprinkle Oral daily Omeprazole 1 Tablet (of 20 mg) Capsule Delayed Release Oral daily Sertraline HCl 1 Tablet (of 25 mg) Oral daily Tamsulosin HCl 1 Tablet (of 0.4 mg) Capsule Oral daily Family History: Social History: Mr. Trejo is . Mr. Trejo has never smoked. He has no history of drinking. Review Of Symptoms: Constitutional Denies fevers, chills, night sweats, excessive fatigue or weight loss. Allergic/Immunologic No reactions. Eyes Denies significant visual changes. No diplopia. No amaurosis. ENMT Denies changes in hearing, sore throat, mouth sores, difficulty or changes in swallowing ability, and/or sinus drainage. Hematologic/Lymphatic Denies easy bruising or bleeding. The patient denies any tender or palpable lymph nodes. Respiratory Denies dyspnea on exertion, chest pain, cough or hemoptysis. Denies orthopnea. Cardiovascular Denies anginal chest pain, palpitations or orthopnea. Gastrointestinal Denies nausea, vomiting, diarrhea, GI bleeding, or constipation. Denies change in bowel habits and/or stool color, no heartburn or early satiety. Genitourinary (M) Denies hematuria, dysuria, increased frequency, urgency, hesitancy or incontinence. Musculoskeletal Denies joint pain, swelling or redness. No decreased range of motion. Integumentary Denies chronic rashes, inflammation, ulcerations or skin changes. Neurologic Denies headache, blurred vision, and no areas of focal weakness or numbness. Normal gait. No sensory problems. Psychiatric Denies insomnia, depression, german or mood swings. Vital Signs: Performed on Jun 03, 2020 12:13 Weight - 240.2 lbs (HIGH) BSA - 0.00 sq.m BMI - 0.00 Temperature - 97.1 F (LOW) Pulse - 69 /min Respiration - 18 /min BP - 136/91 mm(hg) O2 Sat - 100 % Pain - 0 Fatigue - 0,1 - No physically strenuous activity, but ambulatory and able to carry out light or sedentary work (e.g. office work, light house work). (ECOG) Physical Examination: Constitutional Alert, oriented, no acute distress. Skin pink, warm and dry. Head Normocephalic; atraumatic. Eyes Conjunctivae and sclerae are clear and without icterus. Pupils are reactive and equal. Hematologic/Lymphatic No petechiae or purpura. No tender or palpable lymph nodes in the cervical or supraclavicular areas. Respiratory Lungs are clear to auscultation without rhonchi or wheezing. Cardiovascular Regular rate and rhythm of heart without murmurs,clicks, gallops or rubs. Abdomen Non-tender, non-distended, no masses or ascites. Good bowel sounds noted in all quads. No guarding or rebound tenderness. No pulsatile masses. Back/Spine Non-tender to palpation. Extremities No visible deformities, no cyanosis, clubbing or edema. Musculoskeletal No tenderness or swelling, normal range of motion without obvious weakness. Integumentary No rashes or lesions. Neurologic No sensory or motor deficits, normal cerebellar function, normal gait. Psychiatric Alert and oriented times three. Coherent speech. Verbalizes understanding of our discussions today. Laboratory:Test performed on Jun 03, 2020 10:34 Ferritin 47 ng/mL Iron 32 mcg/dL Iron Binding Capacity (TIBC) 325 mcg/dl % Iron Saturation 9.8 % UIBC 293 mcg/dL WBC 11.1 10 3/uL RBC 6.43 10 6/uL HGB 13.5 g/dL HCT 47.0 % MCV 73.1 fL MCH 21.0 pg MCHC 28.7 g/dL RDW 23.4 % Platelet Count 254 10 3/cmm Neutrophils 7.52 10 3/uL Lymphocytes 2.1 10 3/uL Monocytes 1.1 10 3/uL Eosinophils 0.2 10 3/uL Basophils 0.1 10 3/uL Neutrophil % 67.9 % Lymphocyte % 19.2 % Monocyte % 10.2 % Eosinophil % 1.8 % Basophils % 0.6 % NRBC % 0 % CBC Slide Review Slide Review Perform SLIDE REVIEW AGREES WITH AUTOMATED RESULTS ST Test performed on Apr 19, 2020 09:50 Vitamin B12 533 pg/mL MPV 10.3 fL Impression: Microcytic hypochromic anemia most likely to iron deficiency probably due to chronic blood loss due to recurrent epistaxis while patient on anticoagulation for A. fib and aspirin for history of CVA other possibility could be chronic blood loss from GI tract. Or malabsorption, less likely Atrial fibrillation, on Coumadin History of CVA, on aspirin CHF, hypertension Sleep apnea, on CPAP Plan: PROBLEMS ADDRESSED TODAY 1. Iron deficiency anemia. He is currently on oral iron and tolerating it well. He states he is taking 1 tablet daily. A. Labs from today were reviewed in detail and discussed with Mr. Trejo and a copy was given to him. White count 11.1 hemoglobin 13.5 MCV 73.1 improved from 70 on April 19, 2020. Bili count is 259. Neutrophils 7520. B. Iron sat is 9.8% at from April 19 at 8.2%. His ferritin today is 47 iron is 32 TIBC is 325. His last B12 on April 19, 2020 was 533. C. Continue iron at 1 tablet daily as his iron is slowly correcting and he is tolerating it well. He is no longer anemic with a hemoglobin of 13.5. 2. Follow-up plan A. We will plan to see him back in 1 month with CBC CMP and iron studies. He currently has no evidence of bleeding and is slowly correcting the iron deficiency with 1 iron tablet orally daily. B. Mr. Trejo was encouraged to contact us in interim should questions or problems arise. C. He continues Coumadin for atrial fib and his INRs is are monitored by Dr. Verónica Davis. Signed By: Anabel Hurtado-OPAL, AOTIMA Menendez MD <<Signature on File>>
== END 2020-06-03 09:53 | disposition home or self-care (01) ==
LOC: ONCMED 09:55
PROVIDERS: PCP Family Medicine; Visit Provider Nurse Practitioner
DX: D50.0 Iron deficiency anemia secondary to blood loss (chronic) (principal); R04.0 Epistaxis; D68.32 Hemorrhagic disorder due to extrinsic circulating anticoagulants; I48.91 Unspecified atrial fibrillation; Z79.82 Long term (current) use of aspirin; Z86.73 Personal history of transient ischemic attack (TIA), and cerebral infarction without residual deficits; K90.9 Intestinal malabsorption, unspecified; I50.9 Heart failure, unspecified; I11.0 Hypertensive heart disease with heart failure; G47.33 Obstructive sleep apnea (adult) (pediatric); Z79.899 Other long term (current) drug therapy
CPT/HCPCS: 36415; 82728; 83540; 83550; 85025; 99214

== ENCOUNTER 2020-07-05 08:27 | Outpatient (CLI) | payer MEDICARE, BC, SELFPAY ==
[2020-07-05 09:19] LABS: Basophils # 0.1 10^3/uL (0.0-0.1); Basophils % 0.7 %; Eosinophils # 0.2 10^3/uL (0.0-0.8); Hematocrit 50.6 % (42.0-52.0); Hemoglobin 15.2 g/dL (11.7-16.6); Lymphocytes # 1.5 10^3/uL (0.8-4.8); Lymphocytes % 14.2 %; Mean Corpuscular Hemoglobin 23.5 pg (28.0-34.0); Mean Corpuscular Volume 78.3 fL (80-94); Monocytes % 8.9 %; Neutrophils # 7.94 10^3/uL (1.8-7.7); Neutrophils % 73.9 %; Nucleated Red Blood Cells % 0 %; Platelet Count 197 10^3/cmm (130-400); Red Blood Count 6.46 10^6/uL (4.1-5.3); Red Cell Distribution Width 24.3 % (12.1-15.1); White Blood Count 10.8 10^3/uL (4.0-10.0)
[2020-07-05 09:40] LABS: Alanine Aminotransferase 18 U/L (0-41); Albumin Level 3.8 g/dL (3.5-5.2); Alkaline Phosphatase 74 IU/L (40-130); Anion Gap 8.8 (5-19); Aspartate Amino Transferase 14 U/L (0-40); Blood Urea Nitrogen 20 mg/dL (8-23); Calcium 9.5 mg/dL (8.5-10.5); Carbon Dioxide 30 mmol/L (22-29); Chloride 102 mmol/L (98-107); Ferritin 136 ng/mL (30-400); Globulin 3.1 g/dL (1.3-4.6); Glucose 84 mg/dL (65-115); Iron 50 ug/dL (59-158); Osmolality Calculated 286 mOsm/kg (285-295); Percent Saturation 17.4 % (20-50); Potassium 3.8 mmol/L (3.5-5.1); Sodium 137 mmol/L (136-145); Total Bilirubin 0.6 mg/dL (0.15-1.2); Total Iron Binding Capacity 287 mcg/dl; Total Protein 6.9 g/dL (6.6-8.7); Unsaturated Iron Binding 237 ug/dL (112-347)
--- NOTE | 2020-07-05 13:05 | ONC FU_ITS ---
Dr. Menendez follow up note Patient: Oscar Trejo Unit #: [id number]: 1955 Dicatated By: Raciel Menendez M.D.Date of Visit:Jul 05, 2020 Onc Med Follow-up/Prog Note History of Present Illness: Mr. Trejo is a 65-year-old gentleman with a history of iron deficiency anemia. Initially it was thought the anemia due to recurrent nosebleeds requiring multiple visits to [facility]. He was eventually referred to ENT in August 2019 and at that time he was diagnosed with chronic rhinosinusitis as well as intermittent epistaxis. Mr Trejo reports he underwent some kind of sinus surgery since then he has not had recurrent nosebleeds. Mr Trejo has history of atrial fibrillation for which he is on anticoagulation with Coumadin. His lab work-up from August 12, 2019 showed white blood count 7.8 hemoglobin 9.6 crit 32.3 platelets 277,000 MCV 75.5, Mr Trejo reports he was started on oral iron. His hemoglobin continued to improve and lab work-up done on April 08, 2020 showed white blood count 9.2 hemoglobin 11.2 hematocrit 42.1 platelets 287,000 MCV 68.3 and iron studies shows ferritin 18.8 iron saturation 7% iron 26 TIBC 274, B12- 389. As per patient he had EGD done many years ago and at that time it was normal and colonoscopy was done about 5 years ago and it was unremarkable too. Patient has history of sleep apnea, using CPAP history of CVA with recovery, on aspirin, Hypertension, congestive heart failure and the afib. Underwent EGD and colonoscopy on May 25, 2020 EGD showed no abnormality, colonoscopy showed 5 mm inflammatory polyp in the cecum which was removed and pathology came back normal and another 5 mm polyp was removed from descending colon, benign and the patient noted to have internal hemorrhoids rest of colonoscopy was unremarkable., On oral iron once a day, tolerating well came For follow-up, denies any specific complaints, no fever chills, no nausea or vomiting, no diarrhea or constipation, no more nosebleeds, no melena or hematochezia, no hemoptysis or hematemesis no hematuria, tolerating oral iron well Medications: Adult Aspirin EC Low Strength 1 Tablet (of 81 mg) Tablet, enteric coated Oral daily, Atorvastatin Calcium 1 Tablet (of 20 mg) Oral daily, Coumadin (5 mg) Tablet Oral Take as Directed, EQL Iron Supplement Therapy 1 Tablet (of 325 mg) Oral daily, Furosemide 1 Tablet (of 20 mg) Oral at bedtime, Furosemide 1 Tablet (of 40 mg) Oral daily, Metoprolol Succinate 1 Tablet (of 100 mg) Capsule ER 24 Hr Sprinkle Oral daily, Omeprazole 1 Tablet (of 20 mg) Capsule Delayed Release Oral daily, Sertraline HCl 1 Tablet (of 25 mg) Oral daily, Tamsulosin HCl 1 Tablet (of 0.4 mg) Capsule Oral daily Allergies: Latex, Lisinopril, Penicillins, and traMADol HCl. Review of Systems: Review of Systems is not available for this patient. Vital Signs: Vitals are not available for this patient. Performance Status: 0 - Fully active, able to carry on all predisease activities without restrictions. (ECOG) Physical Examination: ENMT - No mouth sores, no thrush, no jaundice, Respiratory - Lungs are clear to auscultation, Cardiovascular - Regular rate and rhythm of heart, Abdomen - Soft, bowel sounds present, Extremities - No visible edema. Lab/Imaging: Test performed on Jun 03, 2020 10:34 Ferritin 47 ng/mL Iron 32 mcg/dL Iron Binding Capacity (TIBC) 325 mcg/dl % Iron Saturation 9.8 % UIBC 293 mcg/dL WBC 11.1 10 3/uL RBC 6.43 10 6/uL HGB 13.5 g/dL HCT 47.0 % MCV 73.1 fL MCH 21.0 pg MCHC 28.7 g/dL RDW 23.4 % Platelet Count 254 10 3/cmm Neutrophils 7.52 10 3/uL Lymphocytes 2.1 10 3/uL Monocytes 1.1 10 3/uL Eosinophils 0.2 10 3/uL Basophils 0.1 10 3/uL Neutrophil % 67.9 % Lymphocyte % 19.2 % Monocyte % 10.2 % Eosinophil % 1.8 % Basophils % 0.6 % NRBC % 0 % CBC Slide Review Slide Review Perform SLIDE REVIEW AGREES WITH AUTOMATED RESULTS ST Test performed on Apr 19, 2020 09:50 Vitamin B12 533 pg/mL MPV 10.3 fL Impression: Microcytic hypochromic anemia most likely to iron deficiency probably due to chronic blood loss due to recurrent epistaxis while patient on anticoagulation for A. fib and aspirin for history of CVA other possibility could be chronic blood loss from GI tract. Or malabsorption, less likely Colonoscopy and EGD done on May 25, 2020, showed normal EGD findings, and colonoscopy showed internal hemorrhoids and polyp removed from cecum and descending colon was benign, no other pathology. Atrial fibrillation, on Coumadin History of CVA, on aspirin CHF, hypertension Sleep apnea, on CPAP Plan: Discussed with patient regarding his labs white blood count 10.8 hemoglobin 15.2 g compared to 13.5 g earlier hematocrit 50.6 MCV 78.3 compared to 73.1 earlier and 70 in April 2020, platelets 197,000 CMP within normal limits iron studies shows iron saturation 17.4% ferritin 136 compared to 47 previously and iron 50 Clinically, patient doing well with no new signs symptoms, tolerating once a day oral iron well, his follow-up CBC shows improvement in his hemoglobin as well as iron stores. Recently underwent EGD and colonoscopy which showed no obvious GI bleeding or pathology except internal hemorrhoids and polyp removed from cecum and descending colon both were benign CBC also shows persistent mild but stable leukocytosis etiology unclear could be due to chronic sinusitis patient has history of recurrent epistaxis for which he is being evaluated by ENT physician in [place]. We will continue to monitor his white blood count if there is no improvement or worsening, will consider whole blood flow cytometry to rule out underlying myeloproliferative disorder.. We will continue with daily oral iron for another 2 months and then he will return to clinic in 2 months with CBC and iron studies Signed By: Raciel Menendez M.D. <<Signature on File>>
== END 2020-07-05 08:28 | disposition home or self-care (01) ==
LOC: ONCMED 08:32
PROVIDERS: PCP Family Medicine; Visit Provider Internal Medicine Hematology & Oncology
DX: D50.9 Iron deficiency anemia, unspecified (principal); D72.829 Elevated white blood cell count, unspecified; R04.0 Epistaxis; J32.9 Chronic sinusitis, unspecified; I48.91 Unspecified atrial fibrillation; I11.0 Hypertensive heart disease with heart failure; I50.9 Heart failure, unspecified; G47.30 Sleep apnea, unspecified; K64.8 Other hemorrhoids; Z79.01 Long term (current) use of anticoagulants; Z79.82 Long term (current) use of aspirin; Z86.73 Personal history of transient ischemic attack (TIA), and cerebral infarction without residual deficits; Z86.010 Personal history of colon polyps
CPT/HCPCS: 36415; 80053; 82728; 83540; 83550; 85025; 99214

== ENCOUNTER 2020-09-27 11:30 | Outpatient (CLI) | payer MEDICARE, BC, SELFPAY ==
[2020-09-27 12:34] LABS: Basophils # 0.1 10^3/uL (0.0-0.1); Basophils % 0.7 %; Eosinophils # 0.2 10^3/uL (0.0-0.8); Eosinophils % 2.6 %; Hematocrit 47.9 % (42.0-52.0); Hemoglobin 15.3 g/dL (11.7-16.6); Lymphocytes # 1.5 10^3/uL (0.8-4.8); Mean Corpuscular HGB Conc 31.9 g/dL (30.0-36.0); Mean Corpuscular Hemoglobin 28.1 pg (28.0-34.0); Mean Corpuscular Volume 87.9 fL (80-94); Mean Platelet Volume 12.1 fL (7.4-10.4); Monocytes # 0.8 10^3/uL (0.2-0.9); Monocytes % 10.5 %; Neutrophils # 4.76 10^3/uL (1.8-7.7); Neutrophils % 64.9 %; Nucleated Red Blood Cells % 0 %; Platelet Count 132 10^3/cmm (130-400); Red Blood Count 5.45 10^6/uL (4.1-5.3); Red Cell Distribution Width 17.4 % (12.1-15.1); White Blood Count 7.3 10^3/uL (4.0-10.0)
[2020-09-27 12:56] LABS: Ferritin 192 ng/mL (30-400); Iron 60 ug/dL (59-158); Percent Saturation 23.9 % (20-50); Total Iron Binding Capacity 251 mcg/dl; Unsaturated Iron Binding 191 ug/dL (112-347)
--- NOTE | 2020-09-27 13:49 | ONC FU_ITS ---
Dr. Menendez follow up note Patient: Oscar Trejo Unit #: [id number]: 1955 Dicatated By: Raciel Menendez M.D.Date of Visit:Sep 27, 2020 Onc Med Follow-up/Prog Note History of Present Illness: Mr. Trejo is a 65-year-old gentleman with a history of iron deficiency anemia. Initially it was thought the anemia due to recurrent nosebleeds requiring multiple visits to [facility]. He was eventually referred to ENT in August 2019 and at that time he was diagnosed with chronic rhinosinusitis as well as intermittent epistaxis. Mr Trejo reports he underwent some kind of sinus surgery since then he has not had recurrent nosebleeds. Mr Trejo has history of atrial fibrillation for which he is on anticoagulation with Coumadin. His lab work-up from August 12, 2019 showed white blood count 7.8 hemoglobin 9.6 crit 32.3 platelets 277,000 MCV 75.5, Mr Trejo reports he was started on oral iron. His hemoglobin continued to improve and lab work-up done on April 08, 2020 showed white blood count 9.2 hemoglobin 11.2 hematocrit 42.1 platelets 287,000 MCV 68.3 and iron studies shows ferritin 18.8 iron saturation 7% iron 26 TIBC 274, B12- 389. As per patient he had EGD done many years ago and at that time it was normal and colonoscopy was done about 5 years ago and it was unremarkable too. Patient has history of sleep apnea, using CPAP history of CVA with recovery, on aspirin, Hypertension, congestive heart failure and the afib. Underwent EGD and colonoscopy on May 25, 2020 EGD showed no abnormality, colonoscopy showed 5 mm inflammatory polyp in the cecum which was removed and pathology came back normal and another 5 mm polyp was removed from descending colon, benign and the patient noted to have internal hemorrhoids rest of colonoscopy was unremarkable., On oral iron once a day, tolerating well Came for follow-up, denies any specific complaints, no fever chills, no nausea or vomiting, no diarrhea constipation, no melena or hematochezia, no hemoptysis or hematemesis, no shortness of breath or palpitation, tolerating oral iron well Medications: Adult Aspirin EC Low Strength 1 Tablet (of 81 mg) Tablet, enteric coated Oral daily, Atorvastatin Calcium 1 Tablet (of 20 mg) Oral daily, Coumadin (5 mg) Tablet Oral Take as Directed, EQL Iron Supplement Therapy 1 Tablet (of 325 mg) Oral daily, Furosemide 1 Tablet (of 20 mg) Oral at bedtime, Furosemide 1 Tablet (of 40 mg) Oral daily, Metoprolol Succinate 1 Tablet (of 100 mg) Capsule ER 24 Hr Sprinkle Oral daily, Omeprazole 1 Tablet (of 20 mg) Capsule Delayed Release Oral daily, Sertraline HCl 1 Tablet (of 25 mg) Oral daily, Tamsulosin HCl 1 Tablet (of 0.4 mg) Capsule Oral daily Allergies: Latex, Lisinopril, Penicillins, and traMADol HCl. Review of Systems: Review of Systems is not available for this patient. Vital Signs: Performed on Sep 27, 2020 13:32 Weight - 244.6 lbs (HIGH) BSA - 0.00 sq.m BMI - 0.00 Temperature - 97.7 F (LOW) Pulse - 83 /min Respiration - 18 /min BP - 151/89 mm(hg) (HIGH) O2 Sat - 99 % Pain - 0 Performance Status: 0 - Fully active, able to carry on all predisease activities without restrictions. (ECOG) Physical Examination: ENMT - No mouth sores, no thrush, no jaundice, Respiratory - Lungs are clear to auscultation, Cardiovascular - Irregular rate and rhythm, Abdomen - Soft, bowel sounds present, Extremities - No visible edema. Lab/Imaging: Test performed on Jun 03, 2020 10:34 Ferritin 47 ng/mL Iron 32 mcg/dL Iron Binding Capacity (TIBC) 325 mcg/dl % Iron Saturation 9.8 % UIBC 293 mcg/dL WBC 11.1 10 3/uL RBC 6.43 10 6/uL HGB 13.5 g/dL HCT 47.0 % MCV 73.1 fL MCH 21.0 pg MCHC 28.7 g/dL RDW 23.4 % Platelet Count 254 10 3/cmm Neutrophils 7.52 10 3/uL Lymphocytes 2.1 10 3/uL Monocytes 1.1 10 3/uL Eosinophils 0.2 10 3/uL Basophils 0.1 10 3/uL Neutrophil % 67.9 % Lymphocyte % 19.2 % Monocyte % 10.2 % Eosinophil % 1.8 % Basophils % 0.6 % NRBC % 0 % CBC Slide Review Slide Review Perform SLIDE REVIEW AGREES WITH AUTOMATED RESULTS ST Test performed on Apr 19, 2020 09:50 Vitamin B12 533 pg/mL MPV 10.3 fL Impression: Microcytic hypochromic anemia most likely to iron deficiency probably due to chronic blood loss due to recurrent epistaxis while patient on anticoagulation for A. fib and aspirin for history of CVA other possibility could be chronic blood loss from GI tract. Or malabsorption, less likely Colonoscopy and EGD done on May 25, 2020, showed normal EGD findings, and colonoscopy showed internal hemorrhoids and polyp removed from cecum and descending colon was benign, no other pathology. Atrial fibrillation, on Coumadin History of CVA, on aspirin CHF, hypertension Sleep apnea, on CPAP Plan: Discussed with patient regarding his labs white blood count 7.3 hemoglobin 15.3 hematocrit 47.9 platelets 132,000 iron studies shows iron saturation 23.9% compared to 17.4% previously ferritin 192, iron 60 compared to 50 previously TIBC 251 Clinically, patient doing well with no new signs symptoms or evidence of gross bleeding, his follow-up CBC shows hemoglobin in normal range along with white blood cell and platelets, iron stores continue to improve on oral iron, at this point we will change oral iron to twice a week from daily, he will return to clinic in 3 months with CBC and iron studies if hemoglobin/hematocrit stayed within normal range and iron stores continue to improve then we may consider stopping oral iron monitoring. Signed By: Raciel Menendez M.D. <<Signature on File>>
== END 2020-09-27 11:31 | disposition home or self-care (01) ==
LOC: ONCMED 11:40
PROVIDERS: PCP Family Medicine; Visit Provider Internal Medicine Hematology & Oncology
DX: D50.0 Iron deficiency anemia secondary to blood loss (chronic) (principal); K64.9 Unspecified hemorrhoids; K63.5 Polyp of colon; I48.91 Unspecified atrial fibrillation; Z79.01 Long term (current) use of anticoagulants; Z86.73 Personal history of transient ischemic attack (TIA), and cerebral infarction without residual deficits; Z79.82 Long term (current) use of aspirin; I50.9 Heart failure, unspecified; I10 Essential (primary) hypertension; G47.33 Obstructive sleep apnea (adult) (pediatric); Z79.899 Other long term (current) drug therapy
CPT/HCPCS: 36415; 82728; 83540; 83550; 85025; 99214

== ENCOUNTER 2021-01-03 13:01 | Outpatient (CLI) | payer MEDICARE, BC, SELFPAY ==
[2021-01-03 14:36] LABS: Basophils % 0.6 %; Eosinophils # 0.3 10^3/uL (0.0-0.8); Eosinophils % 3.8 %; Hematocrit 51.3 % (42.0-52.0); Hemoglobin 16.7 g/dL (11.7-16.6); Lymphocytes # 1.7 10^3/uL (0.8-4.8); Lymphocytes % 23.2 %; Mean Corpuscular HGB Conc 32.6 g/dL (30.0-36.0); Mean Corpuscular Hemoglobin 29.9 pg (28.0-34.0); Mean Corpuscular Volume 91.9 fl (80-94); Mean Platelet Volume 12.6 fL (7.4-10.4); Monocytes # 0.7 10^3/uL (0.2-0.9); Monocytes % 9.3 %; Neutrophils # 4.51 10^3/uL (1.8-7.7); Neutrophils % 62.8 %; Nucleated Red Blood Cells % 0 %; Platelet Count 149 10^3/cmm (130-400); Red Blood Count 5.58 10^6/uL (4.1-5.3); White Blood Count 7.2 10^3/uL (4.0-10.0)
[2021-01-03 15:05] LABS: Ferritin 195 ng/mL (30-400); Iron 72 ug/dL (59-158); Percent Saturation 30.2 % (20-50); Total Iron Binding Capacity 238 mcg/dl; Unsaturated Iron Binding 166 ug/dL (112-347)
--- NOTE | 2021-01-06 18:09 | ONC FU_ITS ---
Dr. Menendez follow up note Patient: Oscar Trejo Unit #: [id number]: 1955 Dicatated By: Raciel Menendez M.D.Date of Visit:Jan 03, 2021 Onc Med Follow-up/Prog Note History of Present Illness: Mr. Trejo is a 65-year-old gentleman with a history of iron deficiency anemia. Initially it was thought the anemia due to recurrent nosebleeds requiring multiple visits to [facility]. He was eventually referred to ENT in August 2019 and at that time he was diagnosed with chronic rhinosinusitis as well as intermittent epistaxis. Mr Trejo reports he underwent some kind of sinus surgery since then he has not had recurrent nosebleeds. Mr Trejo has history of atrial fibrillation for which he is on anticoagulation with Coumadin. His lab work-up from August 12, 2019 showed white blood count 7.8 hemoglobin 9.6 crit 32.3 platelets 277,000 MCV 75.5, Mr Trejo reports he was started on oral iron. His hemoglobin continued to improve and lab work-up done on April 08, 2020 showed white blood count 9.2 hemoglobin 11.2 hematocrit 42.1 platelets 287,000 MCV 68.3 and iron studies shows ferritin 18.8 iron saturation 7% iron 26 TIBC 274, B12- 389. As per patient he had EGD done many years ago and at that time it was normal and colonoscopy was done about 5 years ago and it was unremarkable too. Patient has history of sleep apnea, using CPAP history of CVA with recovery, on aspirin, Hypertension, congestive heart failure and the afib. Underwent EGD and colonoscopy on May 25, 2020 EGD showed no abnormality, colonoscopy showed 5 mm inflammatory polyp in the cecum which was removed and pathology came back normal and another 5 mm polyp was removed from descending colon, benign and the patient noted to have internal hemorrhoids rest of colonoscopy was unremarkable., On oral iron once a day, tolerating well Came for follow-up, denies any specific complaint except stop using CPAP machine, as per patient and his that they learned [facility] CPAP machine can cause cancer and decided to discontinue CPAP machine patient has follow-up appointment at sleep clinic in [place] on January 11, 2021. Otherwise denies any headaches blurred vision double vision denies any chest heaviness or fullness, denies any palpitation or shortness of breath, tolerating oral iron well, no melena hematochezia no hemoptysis hematemesis Medications: Adult Aspirin EC Low Strength 1 Tablet (of 81 mg) Tablet, enteric coated Oral daily, Atorvastatin Calcium 1 Tablet (of 20 mg) Oral daily, Coumadin (5 mg) Tablet Oral Take as Directed, EQL Iron Supplement Therapy 1 Tablet (of 325 mg) Oral daily, Furosemide 1 Tablet (of 20 mg) Oral at bedtime, Furosemide 1 Tablet (of 40 mg) Oral daily, Metoprolol Succinate 1 Tablet (of 100 mg) Capsule ER 24 Hr Sprinkle Oral daily, Omeprazole 1 Tablet (of 20 mg) Capsule Delayed Release Oral daily, Sertraline HCl 1 Tablet (of 25 mg) Oral daily, Tamsulosin HCl 1 Tablet (of 0.4 mg) Capsule Oral daily Allergies: Latex, Lisinopril, Penicillins, and traMADol HCl. Review of Systems: Review of Systems is not available for this patient. Vital Signs: Performed on Jan 03, 2021 15:41 Weight - 238 lbs (LOW) BSA - 0.00 sq.m BMI - 0.00 Temperature - 98.5 F Pulse - 74 /min Respiration - 18 /min BP - 142/84 mm(hg) (HIGH) O2 Sat - 97 % Pain - 0 Fatigue - 0 Performance Status: 1 - No physically strenuous activity, but ambulatory and able to carry out light or sedentary work (e.g. office work, light house work). (ECOG) Physical Examination: ENMT - No mouth sores, no thrush, no jaundice, Respiratory - Poor air entry otherwise clear, Cardiovascular - Regular rate and rhythm of heart, Abdomen - Soft, bowel sounds present, Extremities - No visible edema. Lab/Imaging: Most recent lab results are not available for this patient. Impression: Microcytic hypochromic anemia most likely to iron deficiency probably due to chronic blood loss due to recurrent epistaxis while patient on anticoagulation for A. fib and aspirin for history of CVA other possibility could be chronic blood loss from GI tract. Or malabsorption, less likely, Resolved, responded very well to oral iron Colonoscopy and EGD done on May 25, 2020, showed normal EGD findings, and colonoscopy showed internal hemorrhoids and polyp removed from cecum and descending colon was benign, no other pathology. Atrial fibrillation, on Coumadin History of CVA, on aspirin CHF, hypertension Sleep apnea, on CPAP, Patient stopped using CPAP machine in December 2020 because of information he received that CPAP machine can cause cancer Plan: Discussed with patient regarding his labs white blood count 7.2 hemoglobin 16.7 hematocrit 51.3 platelets 149,000 iron studies shows iron saturation 30.2% ferritin 195 iron 72 Clinically, patient doing well with no new signs symptoms his follow-up labs shows hemoglobin/hematocrit within normal range rather progressive while on oral iron, patient also has underlying sleep apnea for which he was using CPAP machine on a regular basis until recently about 3 weeks ago when he decided to discontinue CPAP machine because of inflammation he received that CPAP machine can cause cancer. Patient is scheduled to see his physician in our sleep clinic in [place] on January 11, 2021 to discuss his options. As his hemoglobin/hematocrit is going up probably due to secondary polycythemia due to sleep apnea, will discontinue oral iron and he will return to clinic in 3 months with CBC and iron studies. Signed By: Raciel Menendez M.D. <<Signature on File>>
== END 2021-01-03 13:02 | disposition home or self-care (01) ==
PROVIDERS: PCP Family Medicine; Visit Provider Internal Medicine Hematology & Oncology
DX: D50.8 Other iron deficiency anemias (principal); K64.8 Other hemorrhoids; I48.91 Unspecified atrial fibrillation; Z79.01 Long term (current) use of anticoagulants; Z86.73 Personal history of transient ischemic attack (TIA), and cerebral infarction without residual deficits; I11.0 Hypertensive heart disease with heart failure; I50.9 Heart failure, unspecified; G47.30 Sleep apnea, unspecified
CPT/HCPCS: 36415; 82728; 83540; 83550; 85025; 99214

== ENCOUNTER 2021-04-08 09:48 | Outpatient (CLI) | payer MEDICARE, SELFPAY ==
[2021-04-08 10:33] LABS: Basophils # 0.1 10^3/uL (0.0-0.1); Basophils % 0.7 %; Eosinophils # 0.2 10^3/uL (0.0-0.8); Eosinophils % 2.4 %; Hematocrit 51.9 % (42.0-52.0); Hemoglobin 16.9 g/dL (11.7-16.6); Lymphocytes # 1.5 10^3/uL (0.8-4.8); Lymphocytes % 21.8 %; Mean Corpuscular HGB Conc 32.6 g/dL (30.0-36.0); Mean Corpuscular Hemoglobin 30.5 pg (28.0-34.0); Mean Corpuscular Volume 93.5 fl (80-94); Mean Platelet Volume 12.3 fL (7.4-10.4); Monocytes # 0.7 10^3/uL (0.2-0.9); Monocytes % 9.4 %; Neutrophils # 4.61 10^3/uL (1.8-7.7); Neutrophils % 65.4 %; Nucleated Red Blood Cells % 0 %; Platelet Count 158 10^3/cmm (130-400); Red Blood Count 5.55 10^6/uL (4.1-5.3); Red Cell Distribution Width 14.2 % (12.1-15.1); White Blood Count 7.1 10^3/uL (4.0-10.0)
[2021-04-08 10:48] LABS: Iron 65 ug/dL (59-158)
[2021-04-08 11:18] LABS: Percent Saturation 22.2 % (20-50); Total Iron Binding Capacity 292 mcg/dl; Unsaturated Iron Binding 227 ug/dL (112-347)
== END 2021-04-08 09:49 | disposition home or self-care (01) ==
PROVIDERS: PCP Family Medicine; Visit Provider Internal Medicine Hematology & Oncology
DX: D50.9 Iron deficiency anemia, unspecified (principal)
CPT/HCPCS: 36415; 83540; 83550; 85025

== ENCOUNTER 2021-04-11 06:34 | Outpatient (CLI) | payer MEDICARE, SELFPAY ==
--- NOTE | 2021-04-11 13:33 | ONC FU_ITS ---
Dr. Menendez follow up note Patient: Oscar Trejo Unit #: [id number]: 1955 Dicatated By: Raciel Menendez M.D.Date of Visit:Apr 11, 2021 Onc Med Follow-up/Prog Note History of Present Illness: Mr. Trejo is a 65-year-old gentleman with a history of iron deficiency anemia. Initially it was thought the anemia due to recurrent nosebleeds requiring multiple visits to [facility]. He was eventually referred to ENT in August 2019 and at that time he was diagnosed with chronic rhinosinusitis as well as intermittent epistaxis. Mr Trejo reports he underwent some kind of sinus surgery since then he has not had recurrent nosebleeds. Mr Trejo has history of atrial fibrillation for which he is on anticoagulation with Coumadin. His lab work-up from August 12, 2019 showed white blood count 7.8 hemoglobin 9.6 crit 32.3 platelets 277,000 MCV 75.5, Mr Trejo reports he was started on oral iron. His hemoglobin continued to improve and lab work-up done on April 08, 2020 showed white blood count 9.2 hemoglobin 11.2 hematocrit 42.1 platelets 287,000 MCV 68.3 and iron studies shows ferritin 18.8 iron saturation 7% iron 26 TIBC 274, B12- 389. As per patient he had EGD done many years ago and at that time it was normal and colonoscopy was done about 5 years ago and it was unremarkable too. Patient has history of sleep apnea, using CPAP history of CVA with recovery, on aspirin, Hypertension, congestive heart failure and the afib. Underwent EGD and colonoscopy on May 25, 2020 EGD showed no abnormality, colonoscopy showed 5 mm inflammatory polyp in the cecum which was removed and pathology came back normal and another 5 mm polyp was removed from descending colon, benign and the patient noted to have internal hemorrhoids rest of colonoscopy was unremarkable., was On oral iron once a day,Was discontinued on March 30, 2021 because of mild polycythemia, patient has underlying sleep apnea for which he is supposed to be on CPAP machine but he is noncompliant Came for follow-up, denies any specific complaints, no fever chills, no nausea or vomiting, no diarrhea or constipation, no melena or hematochezia, patient is not using his CPAP machine as he has sleep study confirmed sleep apnea. Denies any headaches, denies any chest pain or heaviness, denies any blurred vision or double vision. Patient is off oral iron, since then no constipation Medications: Adult Aspirin EC Low Strength 1 Tablet (of 81 mg) Tablet, enteric coated Oral daily, Atorvastatin Calcium 1 Tablet (of 20 mg) Oral daily, Coumadin (5 mg) Tablet Oral Take as Directed, EQL Iron Supplement Therapy 1 Tablet (of 325 mg) Oral daily, Furosemide 1 Tablet (of 20 mg) Oral at bedtime, Furosemide 1 Tablet (of 40 mg) Oral daily, Metoprolol Succinate 1 Tablet (of 100 mg) Capsule ER 24 Hr Sprinkle Oral daily, Omeprazole 1 Tablet (of 20 mg) Capsule Delayed Release Oral daily, Sertraline HCl 1 Tablet (of 25 mg) Oral daily, Tamsulosin HCl 1 Tablet (of 0.4 mg) Capsule Oral daily Allergies: Latex, Lisinopril, Penicillins, and traMADol HCl. Review of Systems: Review of Systems is not available for this patient. Vital Signs: Performed on Apr 11, 2021 12:34 Height - 70 in BSA - 0.00 sq.m BMI - 0.00 Performed on Apr 11, 2021 12:31 Weight - 245.2 lbs (HIGH) BSA - sq.m BMI - 0.00 (LOW) Temperature - 97.8 F (LOW) Pulse - 70 /min Respiration - 19 /min BP - 139/86 mm(hg) O2 Sat - 98 % Pain - 0 Fatigue - 0 Performance Status: 0 - Fully active, able to carry on all predisease activities without restrictions. (ECOG) Physical Examination: ENMT - No mouth sores, no thrush, no jaundice, Respiratory - Lungs are clear to auscultation, Cardiovascular - Regular rate and rhythm of heart, Abdomen - Soft, bowel sounds present, Extremities - No visible edema. Lab/Imaging: Most recent lab results are not available for this patient. Impression: Microcytic hypochromic anemia most likely to iron deficiency probably due to chronic blood loss due to recurrent epistaxis while patient on anticoagulation for A. fib and aspirin for history of CVA other possibility could be chronic blood loss from GI tract. Or malabsorption, less likely, Resolved, responded very well to oral iron Colonoscopy and EGD done on May 25, 2020, showed normal EGD findings, and colonoscopy showed internal hemorrhoids and polyp removed from cecum and descending colon was benign, no other pathology. Atrial fibrillation, on Coumadin History of CVA, on aspirin CHF, hypertension Sleep apnea, on CPAP, Patient stopped using CPAP machine in December 2020 because of information he received that CPAP machine can cause cancer Plan: Discussed with patient regarding his labs white blood count 7.1 hemoglobin 16.9 to 1.9 platelets 158,000 iron studies shows iron saturation 22.2% iron 65 ferritin is pending TIBC 292 Clinically, patient doing well with no new signs symptoms his follow-up labs shows hemoglobin/hematocrit in normal range but on the upper side of normal, adequate iron stores, patient is off oral iron supplements, which was causing constipation moreover with roman catholic of iron stores, his follow-up CBC shows mild polycythemia could be reactive to underlying sleep apnea as patient is noncompliant with his CPAP machine. Patient was advised to use CPAP machine as prescribed by his PMD., At this point, patient will follow up with his PMD with a CBC and in case in future, he develops iron deficiency anemia, he may respond well to oral iron if not parenteral iron can be considered. On the other hand if he develops polycythemia due to underlying sleep apnea, encourage patient to use CPAP machine as recommended or consider phlebotomy on as-needed basis. We will see him on as-needed basis Signed By: Raciel Menendez M.D. <<Signature on File>>
== END 2021-04-11 06:35 | disposition home or self-care (01) ==
LOC: ONCMED 06:35
PROVIDERS: PCP Family Medicine; Visit Provider Internal Medicine Hematology & Oncology
DX: D50.9 Iron deficiency anemia, unspecified (principal); I48.91 Unspecified atrial fibrillation; G47.33 Obstructive sleep apnea (adult) (pediatric); I11.0 Hypertensive heart disease with heart failure; I50.9 Heart failure, unspecified; Z79.01 Long term (current) use of anticoagulants; Z79.82 Long term (current) use of aspirin; Z79.899 Other long term (current) drug therapy; Z86.73 Personal history of transient ischemic attack (TIA), and cerebral infarction without residual deficits
CPT/HCPCS: 99214

== ENCOUNTER 2022-05-01 20:56 | Emergency (ER) | payer MEDICARE, SELFPAY ==
[2022-05-01 20:57] VITALS: BMI 35.9
--- NOTE | 2022-05-01 20:57 | ED_ITS ---
HPI - Epistaxis General: Chief complaint: Epistaxis Stated complaint: nose bleed Time Seen by Provider: 05/01/22 20:57 History of Present Illness: Mr. Trejo is a 67-year-old gentleman on warfarin for history of atrial fibrillation presenting to the emergency department for nosebleed. He reports onset of symptoms atraumatic about 5 PM this evening and essentially was constant since that time. He tried direct pressure and clamp however this did not significantly improve things. He denies blowing his nose hard changes in medication. Right nostril primarily with only minimal trickle into the throat. He does have a history of frequent nosebleeds however had a surgical repair or polyp removal and essentially is not active nosebleed for approximately 3 years. Initially EMS found the patient to be pale and diaphoretic as well as low blood pressure normalized with small bolus. Intensity symptoms moderate, course persisted. No other specific changes in health, exacerbating, or alleviating factors identified. Onset (ago): hour(s) Duration: now resolved Context: history of previous and warfarin use Associated symptoms: Reports other Review of Systems General: Reports: 10 or more systems reviewed and unremarkable except in HPI and below PFSH ED PFSH: Medical History A-fib Anemia Anticoagulant long-term use BPH (benign prostatic hyperplasia) Colon polyps Depression Dyslipidemia History of stroke HTN (hypertension), benign Rib fractures Traumatic pneumothorax Surgical History H/O esophagogastroduodenoscopy (05/25/20) History of colonoscopy (05/25/20) 2016 History of laparoscopic cholecystectomy S/P nasal surgery Family History Denies family history of Anesthesia complication Bleeding disorder Social History Smoking and tobacco status: never smoked Physical Exam Const: COMMON NORMALS: alert GENERAL APPEARANCE: cooperative and well developed HENMT: COMMON NORMALS: normocephalic and atraumatic HEAD & SCALP: normocephalic and atraumatic THROAT: posterior oropharynx normal OTHER: Epistaxis has ceased, there is fresh dark blood at the right nare, left nare appears clear. No discrete vessel identified. On examination of the posterior oropharynx there is no trickle of blood clot appreciated. Eye: COMMON NORMALS: conjunctivae normal CONJUNCTIVA: Yes conjunctivae normal SCLERA: sclerae normal Neck/C-Spine: COMMON NORMALS: supple GENERAL: Yes trachea midline Resp: COMMON NORMALS: normal respiratory effort EFFORT & INSPECTION: Yes able to speak in complete sentences Cardio: COMMON NORMALS: regular rate and regular rhythm RATE: regular rate RHYTHM: regular rhythm GI: COMMON NORMALS: Soft to palpation PALPATION: Yes Soft to palpation and No Tenderness to palpation present (GI) PERCUSSION: normal to percussion Extremity: GENERAL: Yes normal exam except as noted and No edema Neuro: COMMON NORMALS: moves all extremities SENSORIUM/ORIENTATION: Yes alert and No Orientation impaired Psych: COMMON NORMALS: mental status grossly normal and Normal thought process present THOUGHT PROCESS: Normal thought process present Course Vital Signs: Vital signs: Vital Signs Temperature 98.0 F 05/01/22 20:59 Pulse Rate 72 05/01/22 22:00 Respiratory Rate 16 05/01/22 22:00 Blood Pressure 121/85 05/01/22 22:00 Pulse Oximetry 95 05/01/22 22:00 Oxygen Delivery Me thod 05/01/22 20:59 MDM - Epistaxis Medical Decision Making Only minimal venous oozing without identified bleeding vessel or intervenable lesion on exam. Normal hemoglobin. INR is not supratherapeutic. Afrin given and venous oozing improved on reassessment. Patient has achieved hemostasis and satisfactory for outpatient management. Strict instructions and follow-up plan discussed. Medical Records I reviewed the patient's medical records. Lab Data I reviewed the patient's lab results. 05/01/22 21:20 Laboratory Results Hgb 16.6 g/dL (11.7-16.6) 05/01/22 21:20 Hct 51.7 % (42.0-52.0) 05/01/22 21:20 PT 21.20 SECONDS (12.1-14.9) H 05/01/22 21:20 INR 1.80 (0.8-1.2) H 05/01/22 21:20 Discharge Plan Discharge Patient Disposition: Home Clinical Impression: Epistaxis Condition: Stable Prescriptions: No Action lorazepam [Ativan] 0.5 mg tablet 0.25 mg PO Q8H PRN (Reason: sedation) Qty: 7 0RF Vitamin D3 1 tab PO DAILY atorvastatin 20 mg Tablet 20 mg PO DAILY metoprolol tartrate 100 mg Tablet 100 mg PO BID warfarin 5 mg Tablet See Rx Instructions .ROUTE .COMPLEX Rx Instructions: 5 mg orally on Mon, Weds, Fri & 2.5mg on Tues, Thurs, Sat, Sun. sertraline 25 mg Tablet 25 mg PO DAILY omeprazole 20 mg Capsule,Delayed Release(Dr/Ec) 20 mg PO DAILY aspirin 81 mg Tablet,Chewable 81 mg PO DAILY furosemide [Lasix] 20 mg Tablet 20 mg PO BID Discharge Orders: Discharge ED (Routine); Ordered 05/01/22 Ordered By: Reyes Lu Referrals: Verónica Davis MD [Primary Care Provider] - Discharge Diet: Usual diet Discharge Activity: Resume usual activity Patient Instructions: Epistaxis - Adult Activity Restrictions/Additional Instructions: Thank you for visiting the emergency department. You were seen and evaluated for nosebleed. This stopped prior to arrival. I could not identify Avosil that requires cauterization and given the improvement I do not feel that you require nasal packing. I will refer you back to ENT and message her employment case manager for follow-up. If bleeding resumes please use Afrin spray as discussed and nasal clamp. Return to the emergency department for recurrent bleeding or anything else that you are concerned about a feel needs emergency department evaluation. Coding Level of Care Code ED [employer] for [place]
[2022-05-01 20:59] VITALS: BP 137/97; PULSE 81; RESP 16; TEMP 36.7; O2SAT 97
[2022-05-01 21:18] VITALS: BP 116/79; PULSE 74; RESP 14; O2SAT 97
[2022-05-01] MEDS: oxymetazoline 0.05% Nasal Spray 15 mL 2 SPRAY NOSTRIL-R (21:21)
[2022-05-01 21:30] VITALS: BP 141/80; PULSE 72; RESP 16; O2SAT 94
[2022-05-01 21:42] LABS: Hematocrit 51.7 % (42.0-52.0); Hemoglobin 16.6 g/dL (11.7-16.6)
[2022-05-01 22:00] VITALS: BP 121/85; PULSE 72; RESP 16; O2SAT 95
== END 2022-05-01 22:24 | disposition home or self-care (01) ==
PROVIDERS: Emergency Provider Emergency Medicine; PCP Family Medicine
DX: R04.0 Epistaxis (principal); Z79.01 Long term (current) use of anticoagulants; Z79.82 Long term (current) use of aspirin; E78.5 Hyperlipidemia, unspecified; I10 Essential (primary) hypertension; Z86.73 Personal history of transient ischemic attack (TIA), and cerebral infarction without residual deficits
CPT/HCPCS: 85014; 85018; 85610; 99283

== ENCOUNTER 2022-10-31 09:58 | Outpatient (CLI) | payer MEDICARE, SELFPAY ==
--- NOTE | 2022-10-31 10:11 | XRR_ITS ---
PROCEDURE INFORMATION: Exam: XR Left Knee Exam date and time: 10/31/2022 10:21 AM Age: 67 years old Clinical indication: Pain; Knee; Left; Prior surgery; Surgery date: 6+ months; Surgery type: Not specified; Additional info: Pain in L knee TECHNIQUE: Imaging protocol: Radiologic exam of the left knee. Views: 4 or more views. Total images: 4 COMPARISON: No relevant prior studies available. FINDINGS: Bones/joints: Irregular calcifications noted medial to medial epicondyle suggesting remote injury of medial collateral ligament. No acute fracture nor subluxation. No osseous erosion nor periosteal reaction. Soft tissues: Normal. Other findings: Irregularity XR/XR knee LT 4V [id number] IMPRESSION: 1. Irregular calcifications noted medial to medial epicondyle suggesting remote injury of medial collateral ligament insertion site. 2. No acute osseous pathology.
== END 2022-10-31 09:59 | disposition home or self-care (01) ==
LOC: RAD 10:02
PROVIDERS: PCP Family Medicine; Visit Provider Family Medicine
DX: M25.562 Pain in left knee (principal)
CPT/HCPCS: 73564

== ENCOUNTER 2024-02-21 14:52 | Outpatient (RCR) | payer MEDICARE, SELFPAY | END 2024-03-01 23:59 | disposition home or self-care (01) | LOC: SOT 14:52 | PROVIDERS: PCP Family Medicine; Visit Provider Family Medicine | DX: I50.9 Heart failure, unspecified (principal); I48.91 Unspecified atrial fibrillation; M25.552 Pain in left hip | CPT/HCPCS: 97167 ==